=== PATIENT | male | born 1980 | race African-American/Black ===

== ENCOUNTER 2020-05-27 02:17 | Emergency (ER) | payer MEDICAID ==
[~2020-05-27] VITALS: Ht 182.9 cm; Wt 91.0 kg
[2020-05-27 02:20] VITALS: BP 181/119
[2020-05-27] MEDS ORDERED: BACITRACIN ZINC OINT UDPKT TOP ONE (03:00)
[2020-05-27] MEDS ORDERED: IBUPROFEN 600MG TABLET PO ONE (03:00)
[2020-05-27] MEDS ORDERED: TETANUS, DIPHTHERIA, PERTUSSIS VAC/PF 0.5ML (>7YR OLD) IM ONE (03:00)
[2020-05-27] MEDS ORDERED: HYDROCODONE/ACETAMINOPHEN 5/325MG TABLET PO ONE (03:30)
== END 2020-05-27 04:27 | disposition home or self-care (01) ==
LOC: ER 02:17
DX: S52.691A Other fracture of lower end of right ulna, initial encounter for closed fracture (principal); S52.591A Other fractures of lower end of right radius, initial encounter for closed fracture; S62.314A Displaced fracture of base of fourth metacarpal bone, right hand, initial encounter for closed fracture; V86.59XA Driver of other special all-terrain or other off-road motor vehicle injured in nontraffic accident, initial encounter; Y93.89 Activity, other specified; Y92.89 Other specified places as the place of occurrence of the external cause
CPT/HCPCS: 29125; 73090; 73130; 90715; 99284